=== PATIENT | male | born 1985 | race Caucasian/White ===

== ENCOUNTER 2017-05-19 13:27 | Emergency (ER) | payer MEDICAID ==
[2017-05-19 13:31] VITALS: BP 119/79; PULSE 109; RESP 16; TEMP 98.6; O2SAT 92
--- NOTE | 2017-05-19 13:47 | EDPHY ---
H & P Time Seen by Provider: 05/19/17 13:32 HPI/ROS: CHIEF COMPLAINT: Skin infection HISTORY OF PRESENT ILLNESS: 32-year-old male presents to the emergency department by private vehicle concerned about possible skin infection. The patient started with the pustules noted to his right upper extremity which have now spread to his chest wall. He denies any known trauma or injury. He thought maybe that he got bit by something. He has mild pain associated with the rash. No treatment at home. 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 Denies lymphadenopathy. Past Medical/Surgical History: Bipolar, skin infections Social History: Single Smoking Status: Never smoked Physical Exam: On examination the patient has several small pustular looking lesions to the posterior aspect of the right distal humerus as well as multiple areas to the anterior aspect of his chest wall. Mildly tender to palpate. Purulent drainage noted. There is some surrounding redness. There is no palpable lymphadenopathy. His neck is supple. He is afebrile and nontoxic-appearing. Constitutional: Initial Vital Signs Temperature (C) 37 C 05/19/17 13:29 Heart Rate 109 H 05/19/17 13:29 Respiratory Rate 16 05/19/17 13:29 Blood Pressure 119/79 05/19/17 13:29 O2 Sat (%) 92 05/19/17 13:29 O2 Delivery Mode Room Air Allergies/Adverse Reactions: No Known Allergies Allergy (Verified 02/21/17 02:15) Home Medications: Medication Instructions Recorded carBAMazepine [Tegretol] 200 mg PO TID #90 tab 02/26/14 Risperdal 02/21/17 Thorazine (*) 02/21/17 Cephalexin [Keflex] 500 mg PO QID #28 cap 05/19/17 Sulfamethox/Tmp 800/160 mg 1 tab PO BID #14 tab 05/19/17 [Bactrim DS] MDM/Departure - MDM ED Course/Re-evaluation: 32-year-old male presents with skin infection. The patient will be started on Keflex and Bactrim. He does have a history of frequent skin infections. He is unsure if he has ever had MRI say in the past. Do not think IV antibiotics are indicated. I do not think laboratory studies are indicated. I did offer wound culture, however the patient declined. - Depart Disposition: Home, Routine, Self-Care Clinical Impression: Skin infection Condition: Good Instructions: Acute Wounds (ED) Additional Instructions: Keflex and Bactrim as directed for one week. Do not pick the wounds. Return to the emergency department if you developed fever, red streaking up your arm, or if you feel worse in any way. Do not shave until infection resolves. Prescriptions: Cephalexin [Keflex] 500 mg PO QID #28 cap Sulfamethox/Tmp 800/160 mg [Bactrim DS] 1 tab PO BID #14 tab Referrals: PRAVEENA POSEY [Other] - 2-3 days, if not improved
== END 2017-05-19 14:06 | disposition home or self-care (01) ==
DX: L08.9 Local infection of the skin and subcutaneous tissue, unspecified (principal)

== ENCOUNTER 2017-06-15 17:35 | Emergency (ER) | payer MEDICAID ==
[2017-06-15] MEDS ORDERED: HALOPERIDOL LACT 5 MG/ML INJ ONE (17:45)
[2017-06-15] MEDS ORDERED: LORazepam 2 MG/ML INJ IM ONE (17:50)
[2017-06-15] MEDS ORDERED: HALOPERIDOL LACT 5 MG/ML INJ IM ONE (17:50)
[2017-06-15] MEDS ORDERED: HALOPERIDOL LACT 5 MG/ML INJ IM PRN (17:53)
[2017-06-15 18:24] LABS: % IMMATURE GRANULYOCYTES 0.3 % (0.0-1.1); ABSOLUTE IMMATURE GRANULOCYTES 0.02 10^3/uL (0.00-0.10); ADD DIFF? NO; ADD MORPH? NO; ADD SCAN? NO; ATYPICAL LYMPHOCYTE FLAG 30 (0-99); FRAGMENT RBC FLAG 0 (0-99); HEMATOCRIT 45.6 % (40.0-51.0); HEMOGLOBIN 16.5 g/dL (13.7-17.5); LEFT SHIFT FLG 0 (0-99); LIPEMIA HEMOLYSIS FLAG 90 (0-99); MEAN CELL HEMOGLOBIN 34.2 pg (27.9-34.1); MEAN CELL HEMOGLOBIN CONCENTR. 36.2 g/dL (32.4-36.7); MEAN CELL VOLUME 94.6 fL (81.5-99.8); PLATELET CLUMPS FLAG 10 (0-99); PLATELET COUNT 277 10^3/uL (150-400); RED BLOOD CELL COUNT 4.82 10^6/uL (4.40-6.38); RED CELL DISTRIBUTION WIDTH 12.8 % (11.5-15.2)
[2017-06-15 18:39] LABS: ANION GAP 15 mEq/L (8-16); CALCIUM 9.6 mg/dL (8.5-10.4); CARBON DIOXIDE 20 mEq/l (22-31); CHLORIDE 111 mEq/L (97-110); ETHANOL SERUM 220 mg/dL (0-10); GLOMERULAR FILTRATION RATE > 60; GLUCOSE 96 mg/dL (70-100); POTASSIUM 3.6 mEq/L (3.5-5.2); SALICYLATE < 1.0 mg/dL (2.0-20.0); SODIUM 146 mEq/L (134-144)
[2017-06-15 23:42] VITALS: RESP 16; TEMP 97.5
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
[2017-06-16 06:08] VITALS: BP 100/68; PULSE 99; O2SAT 95
== END 2017-06-16 06:08 | disposition home or self-care (01) ==
DX: R45.851 Suicidal ideations (principal); F10.920 Alcohol use, unspecified with intoxication, uncomplicated
CPT/HCPCS: 80305; G0480